=== PATIENT | female | born 1995 | race Caucasian/White ===

== ENCOUNTER 2017-06-16 11:11 | Outpatient (CLI) | payer OTHER ==
[2017-06-16 11:53] LABS: BHCG - Serum POSITIVE (NEGATIVE); Pregs Control Background? CLEAR/WHITE (CLR/WHITE); Pregs Control Bar Appear? YES (CONTROL BAR)
== END 2017-06-16 11:12 | disposition home or self-care (01) ==
LOC: MADLAB 11:11
DX: Z00.00 Encounter for general adult medical examination without abnormal findings (principal)
CPT/HCPCS: 36415; 84703

== ENCOUNTER 2021-11-10 13:43 | Emergency (ER) | payer MEDICAID, OTHER | END 2021-11-10 14:35 | disposition home or self-care (01) | LOC: MADERS 13:43 | DX: L03.032 Cellulitis of left toe (principal) | CPT/HCPCS: 99282 ==